=== PATIENT | female | born 1970 | race Hispanic/Latino ===

== ENCOUNTER 2021-04-14 14:54 | Emergency (ER) | payer BC, OTHER | END 2021-04-14 16:44 | disposition home or self-care (01) | LOC: BURERS 14:54 | DX: S93.401A Sprain of unspecified ligament of right ankle, initial encounter (principal); S83.91XA Sprain of unspecified site of right knee, initial encounter; X50.9XXA Other and unspecified overexertion or strenuous movements or postures, initial encounter ==